=== PATIENT | female | born 1995 | race African-American/Black ===

== ENCOUNTER 2018-06-12 06:02 | Emergency (ER) | payer OTHER ==
[2018-06-12] MEDS ORDERED: MORPHINE SULFATE 10 MG/ML INJ IV ONE (06:25)
[2018-06-12] MEDS ORDERED: NORMAL SALINE 1000 ML 1,000 ML IV ONE (06:26)
--- NOTE | 2018-06-12 06:26 | ER Document Report ---
ED Medical Screen (RME) - General Chief Complaint: Abdominal Pain Stated Complaint: ABDOMINAL PAIN Mode of Arrival: Ambulatory Information source: Patient Notes: Patient states that she woke up with right lower pelvic abdominal pain. Patient states she does have some flank pain but the pain is worse to her abdomen. Patient denies any urinary symptoms vaginal bleeding or vaginal discharge. Patient denies any nausea or vomiting. I have greeted and performed a rapid initial assessment of this patient. A comprehensive ED assessment and evaluation of the patient, analysis of test results and completion of the medical decision making process will be conducted by additional ED providers. - Related Data Allergies/Adverse Reactions: No Known Allergies Allergy (Unverified 06/12/18 06:06) Physical Exam - Vital signs Vitals: Temp Pulse Resp BP Pulse Ox 98.1 F 88 20 126/89 H 100 06/12/18 06:08 06/12/18 06:08 06/12/18 06:08 06/12/18 06:08 06/12/18 06:08 - Abdominal Tenderness: Tender - Right lower pelvic - Back Back: CVA tenderness - Mild Course - Vital Signs Vital signs: Temp Pulse Resp BP Pulse Ox 98.1 F 88 20 126/89 H 100 06/12/18 06:08 06/12/18 06:08 06/12/18 06:08 06/12/18 06:08 06/12/18 06:08
[2018-06-12 07:00] LABS: ABSOLUTE EOSINOPHILS # (AUTO) 0.2 10^3/uL (0.0-0.6); ABSOLUTE LYMPHOCYTES (AUTO) 2.2 10^3/uL (0.5-4.7); ABSOLUTE MONOCYTES (AUTO) 0.5 10^3/uL (0.1-1.4); ABSOLUTE NEUT (AUTO) 4.9 10^3/uL (1.7-8.2); BASOPHILS % (AUTO) 0.4 % (0-2); EOSINOPHILS % (AUTO) 2.2 % (0-6); HEMATOCRIT 38.4 % (36.0-47.0); LYMPHOCYTES % (AUTO) 27.7 % (13-45); MEAN CORPUSCULAR HEMOGLOBIN 30.7 pg (27.0-33.4); MEAN CORPUSCULAR VOLUME 90 fl (80-97); PLATELET COUNT 223 10^3/uL (150-450); RED BLOOD COUNT 4.25 10^6/uL (3.72-5.28); RED CELL DISTRIBUTION WIDTH 12.6 % (11.5-14.0); SEGMENTED NEUTROPHILS % (AUTO) 62.7 % (42-78); TOTAL CELLS COUNTED % (AUTO) 100 %; WHITE BLOOD COUNT 7.9 10^3/uL (4.0-10.5)
[2018-06-12 07:12] LABS: ALANINE AMINOTRANSFERASE 23 U/L (9-52); ALKALINE PHOSPHATASE 68 U/L (38-126); ANION GAP 9 (5-19); ASPARTATE AMINO TRANSFERASE 32 U/L (14-36); BILIRUBIN,DIRECT 0.3 mg/dL (0.0-0.4); BILIRUBIN,TOTAL 0.7 mg/dL (0.2-1.3); BLOOD UREA NITROGEN 13 mg/dL (7-20); CALCIUM 9.2 mg/dL (8.4-10.2); CARBON DIOXIDE 27 mmol/L (22-30); CHLORIDE 107 mmol/L (98-107); GLUCOSE 100 mg/dL (75-110); LIPASE 107.2 U/L (23-300); POTASSIUM 4.3 mmol/L (3.6-5.0); SODIUM 143.2 mmol/L (137-145); TOTAL PROTEIN 7.3 g/dL (6.3-8.2)
[2018-06-12 07:24] LABS: APPEARANCE,URINE CLOUDY; BILIRUBIN,URINE NEGATIVE (NEGATIVE); COLOR,URINE YELLOW; GLUCOSE, URINE NEGATIVE (NEGATIVE); KETONES,URINE NEGATIVE (NEGATIVE); LEUKOCYTE ESTERASE,URINE LARGE (NEGATIVE); NITRITE,URINE NEGATIVE (NEGATIVE); PROTEIN,URINE NEGATIVE (NEGATIVE); UROBILINOGEN,URINE NEGATIVE mg/dL (<2.0)
[2018-06-12] MEDS ORDERED: KETOROLAC TROMETHAMINE INJ/PF 30 MG/1 ML SDV IV ONE (07:30)
--- NOTE | 2018-06-12 08:03 | RADIOLOGY REPORT (SQ) ---
EXAM DESCRIPTION: CT ABDOMEN WITHOUT IV CONTRAST COMPLETED DATE/TME: 06/12/2018 07:36 CLINICAL HISTORY: 23 years, Female, flank pain COMPARISON: EXAM DESCRIPTION: CLINICAL HISTORY: flank pain COMPARISON: None Available TECHNIQUE: Contiguous axial images of the abdomen and pelvis were obtained after the administration of intravenous contrast followed by reconstruction images.This exam was performed according to our departmental dose-optimization program, which includes automated exposure control, adjustment of the mA and/or kV according to patient size and/or use of iterative reconstruction technique. FINDINGS: The liver, spleen, pancreas and kidneys are within normal limits. There is no hydronephrosis. The gallbladder is unremarkable. Adrenal glands are within normal limits. Aorta is normal in caliber and tapering. No significant free fluid. No free air. No bowel obstruction. There is no stranding of the mesenteric fat. The appendix appears normal. No evidence of periappendiceal inflammation. IMPRESSION: No acute intra-abdominal abnormality TECHNIQUE: Images stored on PACS. All CT scanners at this facility use dose modulation, iterative reconstruction, and/or weight based dosing when appropriate to reduce radiation dose to as low as reasonably achievable (ALARA). [facility]: Dose Right [facility]: CareDose [facility]: Dose Right [facility]: Teradose 4D [facility]: Smart Reamaze LIMITATIONS: None. FINDINGS: IMPRESSION: TECHNICAL DOCUMENTATION: Quality ID # [id number]: Final reports with documentation of one or more dose reduction techniques (e.g., Automated exposure control, adjustment of the mA and/or kV according to patient size, use of iterative reconstruction technique) 2010 [employer]- All Rights Reserved
--- NOTE | 2018-06-12 09:26 | ER Document Report ---
ED General - General Chief Complaint: Abdominal Pain Stated Complaint: ABDOMINAL PAIN Time Seen by Provider: 06/12/18 06:33 Mode of Arrival: Ambulatory - [facility] Patient complains to provider of: Right flank pain Notes: Patient coming in for acute onset of right flank pain. Patient also states hematuria. Denies any fever chills nausea vomiting diarrhea. Patient upon my evaluation is walking back and forth in extreme discomfort. Patient denies a history of kidney stones. Patient denies any trauma denies any dysuria. Patient denies a history of being . Patient is active [employer] at this time. Denies any new physical activity - Related Data Allergies/Adverse Reactions: No Known Allergies Allergy (Unverified 06/12/18 06:06) Past Medical History - General Information source: Patient - Social History Smoking Status: Never Smoker Frequency of alcohol use: Occasional Drug Abuse: None Family History: Reviewed & Not Pertinent Patient has suicidal ideation: No Patient has homicidal ideation: No Renal/ Medical History: Denies: Hx Peritoneal Dialysis Review of Systems - Review of Systems Constitutional: No symptoms reported EENT: No symptoms reported Cardiovascular: No symptoms reported Respiratory: No symptoms reported Gastrointestinal: No symptoms reported Genitourinary: Flank pain Female Genitourinary: No symptoms reported Musculoskeletal: No symptoms reported Skin: No symptoms reported Hematologic/Lymphatic: No symptoms reported Neurological/Psychological: No symptoms reported -: Yes All other systems reviewed and negative Physical Exam - Vital signs Vitals: Temp Pulse Resp BP Pulse Ox 98.1 F 88 20 126/89 H 100 06/12/18 06:08 06/12/18 06:08 06/12/18 06:08 06/12/18 06:08 06/12/18 06:08 Interpretation: Normal - General General appearance: Appears well, Alert - HEENT Head: Normocephalic, Atraumatic Eyes: Normal Pupils: PERRL - Respiratory Respiratory status: No respiratory distress Chest status: Nontender Breath sounds: Normal Chest palpation: Normal - Cardiovascular Rhythm: Regular Heart sounds: Normal auscultation Murmur: No - Abdominal Inspection: Normal Distension: No distension Bowel sounds: Normal Tenderness: Nontender Organomegaly: No organomegaly - Back Back: Normal, CVA tenderness - Right flank - Extremities General upper extremity: Normal inspection, Nontender, Normal color, Normal ROM , Normal temperature General lower extremity: Normal inspection, Nontender, Normal color, Normal ROM , Normal temperature, Normal weight bearing. No: Angelica's sign - Neurological Neuro grossly intact: Yes Cognition: Normal Orientation: AAOx4 Srinivasan Coma Scale Eye Opening: Spontaneous [place] Coma Scale Verbal: Oriented [place] Coma Scale Motor: Obeys Commands Srinivasan Coma Scale Total: 15 Speech: Normal Motor strength normal: LUE, RUE, LLE, RLE Sensory: Normal - Psychological Associated symptoms: Normal affect, Normal mood - Skin Skin Temperature: Warm Skin Moisture: Dry Skin Color: Normal Course - Re-evaluation Re-evalutation: 06/12/18 14:26 Patient's laboratory studies showed gross hematuria. Patient on a CT scan CT scan was read by the radiologist as negative however my personal review concern for possible kidney stone at the UVJ almost to the entrance of the bladder. There is no obstructive changes seen this is more consistent with the patient's presentation. Morphine did not help out the patient's pain however patient after receiving ketorolac resting quite commonly no longer rocking back-and- forth. Patient was given a dose of Flomax will treat as a kidney stone. Encouraged follow-up primary care physician [place] Vital Signs Vital signs: Temp Pulse Resp BP Pulse Ox 98.5 F 82 18 126/79 H 100 06/12/18 09:30 06/12/18 09:30 06/12/18 09:30 06/12/18 09:30 06/12/18 09:30 - Laboratory Result Diagrams: 06/12/18 06:50 06/12/18 06:50 Laboratory results interpreted by me: 06/12/18 07:00 Urine Blood LARGE H Ur Leukocyte Esterase LARGE H - Diagnostic Test Radiology results interpreted by me: 06/12/18 14:27 CT scan was reviewed by the radiologist as negative My personal review of the CAT scan does show a calcification just behind it in the bladder consistent with a kidney stone at the UVJ. Discharge - Discharge Clinical Impression: Kidney stone Condition: Good Disposition: HOME, SELF-CARE Instructions: Flomax ([facility]), Kidney Stone ([facility]), Oral Narcotic Medication ([facility]) Additional Instructions: Your evaluation today is consistent with a kidney stone. I would highly recommend she follow-up with your primary care physician. Please make sure you are drinking plenty of fluids to stay well-hydrated. Please make sure that you take Tylenol and Motrin for your your pain Take Zofran for nausea Ultram for severe pain Flomax to help with possible passage of stone Prescriptions: Ibuprofen [Motrin 600 mg Tablet] 600 mg PO Q8HP PRN #21 tablet PRN Reason: Ondansetron [Zofran Odt] 4 mg PO Q6 PRN #30 tab.rapdis PRN Reason: For Nausea/Vomiting Tamsulosin HCl [Flomax 0.4 mg Cap.sr] 0.4 mg PO DAILY #7 cap.sr.24h Tramadol HCl [Ultram 50 mg Tablet] 50 mg PO ASDIR PRN #20 tablet PRN Reason:
[2018-06-12 09:37] VITALS: BP 126/79
== END 2018-06-12 09:37 | disposition home or self-care (01) ==
LOC: ER 06:02
DX: N20.0 Calculus of kidney (principal); R10.9 Unspecified abdominal pain; R31.0 Gross hematuria
CPT/HCPCS: 99284; 96361; 96374; 96375; 36415; 83690; 85025; 81025; 80053; 81001; 76380; L0120; J1885; J2270; J7030